=== PATIENT | male | born 1975 | race Caucasian/White ===

== ENCOUNTER 2016-09-19 20:20 | Emergency (ER) | payer OTHER ==
[~2016-09-19] VITALS: Ht 172.7 cm; Wt 84.1 kg
[2016-09-19] MEDS ORDERED: PERTUSS(ACELL),DIPH,TET VAC/PF 0.5 ML VIAL IM ONE (21:15)
[2016-09-19] MEDS ORDERED: ONDANSETRON HCL 4 MG TABLET PO ONE (21:15)
[2016-09-19] MEDS ORDERED: LIDOCAINE HCL 1% 10 ML VIAL INJ ONE (21:15)
[2016-09-19 21:17] VITALS: BP 131/84
== END 2016-09-19 22:04 | disposition home or self-care (01) ==
LOC: EMS 20:22
DX: S61.213A Laceration without foreign body of left middle finger without damage to nail, initial encounter (principal); W45.8XXA Other foreign body or object entering through skin, initial encounter; Y93.89 Activity, other specified; Y92.098 Other place in other non-institutional residence as the place of occurrence of the external cause; Y99.8 Other external cause status
CPT/HCPCS: 12002; 90471; 90715; 99283; J3490; Q0162